=== PATIENT | male | born 1965 | race Two or more races ===

== ENCOUNTER 2023-03-21 06:12 | Emergency (ER) | payer OTHER ==
[~2023-03-21] VITALS: Ht 185.4 cm; Wt 119.7 kg
== END 2023-03-21 10:43 | disposition home or self-care (01) ==
LOC: ER 06:12
DX: M54.16 Radiculopathy, lumbar region (principal); Z88.8 Allergy status to other drugs, medicaments and biological substances; M51.36 Other intervertebral disc degeneration, lumbar region
CPT/HCPCS: 72131; 96365; 99284; J1100; J1885; J2270